=== PATIENT | female | born 1975 | race Caucasian/White ===

== ENCOUNTER 2017-08-30 12:57 | Observation (INO) | payer MEDICARE ==
[~2017-08-30] VITALS: Ht 152.4 cm; Wt 72.1 kg
[2017-08-30] VITALS (10 sets, daily range): BP systolic 107–161; BP diastolic 55–101; PULSE 92–114; RESP 15–20; TEMP 98–99.2; O2SAT 97–100
[~2017-08-30 12:57] MED LIST: IBUP800T23 PO; PERC5TAB12 PO
[2017-08-30] MEDS ORDERED: SODIUM CHLORIDE 0.9% FLUSH 10 ML FLUSH IV FLUSH PRN (14:00)
--- NOTE | 2017-08-30 14:28 | PD ---
HPI Chief Complaint: Anxiety Time Seen by Provider: 13:52 Travel History International Travel<30 days: No Contact w/Intl Traveler<30days: No Traveled to known affect area: No History of Present Illness HPI 42-year-old female presents to the ED for evaluation of intermittent episodes of tachycardia and increased agitation. Episodes occur randomly, lasting approximately 5 minutes before resolving spontaneously. She can identify no alleviating or exacerbating factors. She endorses occasional mild chest pain and shortness of breath accompanying the tachycardia. She denies diaphoresis, nausea or vomiting. She states that she feels these symptoms may be related to menopause. 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 Never smoked. Denies family history of NH. Unsure of the last time she's had any labs drawn. PFSH Past Medical History Hx Anticoagulant Therapy: No Cancer: Yes (HODGKINS DX) Cardiovascular Problems: No Chemotherapy: Yes (STARTED 2009, FINISHED 02/2010) Diabetes: No Diminished Hearing: No Glaucoma: No Hepatitis: No Hiatal Hernia: No Hypertension: No Respiratory: No Immunizations Current: Yes Radiation Therapy: Yes (FINISHED, APRIL 2012) Thyroid Disease: No Tetanus Vaccination: > 5 Years Influenza Vaccination: Yes PNEUMOCCOCAL Vaccine (Year): 2 ?: Not Menopausal: Yes : 4 Para: 3 Miscarriage: 1 Tubal Ligation: Yes Past Surgical History Abdominal Surgery: No Cardiac Surgery: No Section: Yes (X 3) Ear Surgery: No Endocrine Surgery: No Eye Surgery: No Genitourinary Surgery: No Gynecologic Surgery: Yes (THREE , TUBAL LIGATION) Hysterectomy: Yes Oral Surgery: Yes (TEETH REMOVAL) Pacemaker: No Other Surgery: Yes (neck hodgkins) Social History Alcohol Use: No Tobacco Use: No Substance Use: No Allergies-Medications (Allergen,Severity, Reaction): Coded Allergies: acetaminophen (Unverified Allergy, Severe, VOMITING, 08/30/17) hydrocodone (Unverified Allergy, Severe, VOMITING, 08/30/17) Reported Meds & Prescriptions Reported Meds & Active Scripts Active Review of Systems Except as stated in HPI: all other systems reviewed are Neg Physical Exam Narrative GENERAL: Well-nourished, well-developed female in no acute distress. SKIN: Focused skin assessment warm/dry. HEAD: Normocephalic. EYES: No scleral icterus. No injection or drainage. NECK: Supple, trachea midline. No JVD or lymphadenopathy. CARDIOVASCULAR: Regular rate and rhythm without murmurs, gallops, or rubs. RESPIRATORY: Breath sounds clear and equal bilaterally. No accessory muscle use. GASTROINTESTINAL: Abdomen soft, non-tender, nondistended. Active bowel sounds. RECTAL EXAM: No masses or tenderness, stool is brown. Guaiac negative MUSCULOSKELETAL: No cyanosis, or edema. BACK: Nontender without obvious deformity. No CVA tenderness. Data Data Last Documented VS Vital Signs Date Time Temp Pulse Resp B/P (MAP) Pulse Ox O2 Delivery O2 Flow Rate FiO2 08/30/17 13:02 98.0 111 16 149/79 (102) 100 Orders Orders Electrocardiogram (08/30/17 ) Basic Metabolic Panel (Bmp) (08/30/17 13:59) Complete Blood Count With Diff (08/30/17 13:59) Iv Access Insert/Monitor (08/30/17 13:59) Sodium Chloride 0.9% Flush (Ns Flush) (08/30/17 14:00) Thyroid Stimulating Hormone (08/30/17 13:59) Iron/Tibc Profile (08/30/17 14:56) Type And Screen (08/30/17 14:56) Troponin I (08/30/17 15:18) Red Blood Cells (Rbc) (08/30/17 15:26) Sodium Chlor 0.9% 1000 Ml Inj (Ns 1000 M (08/30/17 15:30) Blood Product Administration (08/30/17 15:41) Admit Order (Ed Use Only) (08/30/17 15:44) Labs Laboratory Tests Test 08/30/17 14:15 08/30/17 14:45 White Blood Count 9.0 TH/MM3 Red Blood Count 3.63 MIL/MM3 Hemoglobin 6.1 GM/DL Hematocrit 20.3 % Mean Corpuscular Volume 56.1 FL Mean Corpuscular Hemoglobin 16.7 PG Mean Corpuscular Hemoglobin Concent 29.8 % Red Cell Distribution Width 19.5 % Platelet Count 314 TH/MM3 Mean Platelet Volume 7.4 FL Neutrophils (%) (Auto) 79.8 % Lymphocytes (%) (Auto) 10.2 % Monocytes (%) (Auto) 7.5 % Eosinophils (%) (Auto) 1.6 % Basophils (%) (Auto) 0.9 % Neutrophils # (Auto) 7.2 TH/MM3 Lymphocytes # (Auto) 0.9 TH/MM3 Monocytes # (Auto) 0.7 TH/MM3 Eosinophils # (Auto) 0.1 TH/MM3 Basophils # (Auto) 0.1 TH/MM3 CBC Comment AUTO DIFF Differential Comment AUTO DIFF CONFIRMED Platelet Estimate NORMAL Platelet Morphology Comment NORMAL Target Cells 1+ Blood Urea Nitrogen 9 MG/DL Creatinine 0.68 MG/DL Random Glucose 156 MG/DL Calcium Level 8.8 MG/DL Sodium Level 134 MEQ/L Potassium Level 3.4 MEQ/L Chloride Level 101 MEQ/L Carbon Dioxide Level 25.0 MEQ/L Anion Gap 8 MEQ/L Estimat Glomerular Filtration Rate 96 ML/MIN Thyroid Stimulating Hormone 3rd Gen 1.760 uIU/ML Troponin I LESS THAN 0.02 NG/ML MDM Medical Decision Making Medical Screen Exam Complete: Yes Emergency Medical Condition: Yes Differential Diagnosis Dysrhythmia versus anxiety versus anemia versus metabolic derangement versus menopause versus hyperthyroidism versus other Narrative Course 42-year-old female presents to the ED for evaluation of intermittent episodes of tachycardia and increased agitation. Episodes occur randomly, lasting approximately 5 minutes before resolving spontaneously. She endorses occasional mild chest pain and shortness of breath accompanying the tachycardia. Never smoked. Denies family history of NH. Patient is tachycardic on presentation. Physical exam is unremarkable. IV was established. EKG rate 99, sinus rhythm. WV interval 149, QRS 81, QTC 404 ms. Normal axis. Q wave in 2. Reviewed by Dr. Ramos Troponin: Negative 1 CBC: Hemoglobin 6.1, hematocrit 20.3. CMP: No concerning abnormalities. TSH: 1.760 I discussed the patient's anemia with the family. Patient endorses history of iron deficiency anemia. She is not currently taking any supplementation. Denies any melena, hematochezia, chronic NSAID use. Rectal exam performed, guaiac negative. 2 units PRBCs ordered pending type and screen. Patient is agreeable to admission. I spoke with Dr. Rockwell who agrees to accept the patient to the medicine service for observation. Please see medicinefor disposition. HemaPrompt Point of Care Internal Pos. & Neg. Controls: Passed Fecal Specimen Occult Blood: Negative Yolanda Reddy Aug 30, 2017 14:28
[2017-08-30 14:36] LABS: CALCIUM 8.8 MG/DL (8.5-10.1)
[2017-08-30 14:39] LABS: CREATININE 0.68 MG/DL (0.50-1.00)
[2017-08-30 14:42] LABS: AUTOMATED NEUTROPHIL # 7.2 TH/MM3 (1.8-7.7); BASOPHIL # 0.1 TH/MM3 (0-0.2); BASOPHIL % 0.9 % (0.0-2.0); EOSINOPHIL # 0.1 TH/MM3 (0-0.4); EOSINOPHIL % 1.6 % (0.0-4.0); LYMPH % 10.2 % (9.0-44.0); LYMPHOCYTE # 0.9 TH/MM3 (1.0-4.8); MEAN CELL VOLUME 56.1 FL (80.0-100.0); MEAN CORPUSCULAR HEMOGLOBIN 16.7 PG (27.0-34.0); MEAN PLATELET VOLUME 7.4 FL (7.0-11.0); MONO % 7.5 % (0.0-8.0); MONOCYTE # 0.7 TH/MM3 (0-0.9); NEUT % 79.8 % (16.0-70.0); PLATELET COUNT 314 TH/MM3 (150-450); RED BLOOD COUNT 3.63 MIL/MM3 (4.00-5.30); RED CELL DISTRIBUTION WIDTH 19.5 % (11.6-17.2)
[2017-08-30 14:44] LABS: MEAN CORPUSCULAR HGB CONC 29.8 % (32.0-36.0)
[2017-08-30 14:47] LABS: HEMOGLOBIN 6.1 GM/DL (11.6-15.3)
[2017-08-30 14:48] LABS: HEMATOCRIT 20.3 % (35.0-46.0)
[2017-08-30 15:13] LABS: TARGET CELLS 1+ (NORMAL)
[2017-08-30] MEDS ORDERED: SODIUM CHLOR 0.9% 1000 ML INJ 1,000 ML IV ONE (15:30)
[2017-08-30 18:11] LABS: IRON (FE) 13 MCG/DL (50-170); TOTAL IRON BINDING CAPACITY 643 MCG/DL (250-450)
[2017-08-30] MEDS ORDERED: SODIUM CHLOR 0.9% 250 ML INJ 250 ML IV ONE (18:15)
[2017-08-30] MEDS ORDERED: ALPRAZolam 0.25 MG TAB PO ONE (21:00)
[2017-08-31] VITALS (7 sets, daily range): BP systolic 116–130; BP diastolic 78–91; PULSE 82–99; RESP 16–20; TEMP 96.4–98.5; O2SAT 96–98
[2017-08-31 08:59] LABS: AUTOMATED NEUTROPHIL # 6.6 TH/MM3 (1.8-7.7); BASOPHIL # 0.2 TH/MM3 (0-0.2); BASOPHIL % 1.8 % (0.0-2.0); EOSINOPHIL # 0.2 TH/MM3 (0-0.4); EOSINOPHIL % 2.2 % (0.0-4.0); HEMATOCRIT 28.2 % (35.0-46.0); HEMOGLOBIN 8.9 GM/DL (11.6-15.3); LYMPH % 12.8 % (9.0-44.0); LYMPHOCYTE # 1.1 TH/MM3 (1.0-4.8); MEAN CELL VOLUME 66.7 FL (80.0-100.0); MEAN CORPUSCULAR HEMOGLOBIN 21.1 PG (27.0-34.0); MEAN CORPUSCULAR HGB CONC 31.6 % (32.0-36.0); MEAN PLATELET VOLUME 7.5 FL (7.0-11.0); MONO % 8.3 % (0.0-8.0); MONOCYTE # 0.7 TH/MM3 (0-0.9); NEUT % 74.9 % (16.0-70.0); PLATELET COUNT 258 TH/MM3 (150-450); RED BLOOD COUNT 4.23 MIL/MM3 (4.00-5.30); RED CELL DISTRIBUTION WIDTH 28.3 % (11.6-17.2); WHITE BLOOD COUNT 8.8 TH/MM3 (4.0-11.0)
[2017-08-31 09:22] LABS: KERATOCYTES 1+ (NORMAL); OVALOCYTES 1+ (NORMAL); TARGET CELLS 1+ (NORMAL)
--- NOTE | 2017-08-31 09:50 | HHI.HP ---
[facility] Service [facility] Primary Care Physician No Primary Care Physician Admission Diagnosis symptomatic anemia Diagnoses: (1) Symptomatic anemia Chief Complaint: Tachycardia, hot flashes Travel History International Travel<30 Days: No Contact w/Intl Traveler <30 Da: No Traveled to Known Affected Are: No History of Present Illness The patient is a 42-year-old female who presented to the emergency department for complaint of tachycardia, agitation, hot flashes. She states that she has had multiple episodes over the past few weeks. She denies dyspnea or diaphoresis. She denies nausea or vomiting. She believes that she is going into early menopause. She reports infrequent light periods. She denies any blood in her stool or urine. No chest pain. Review of Systems Constitutional: DENIES: Fever, Chills, Night Sweats Endocrine: COMPLAINS OF: Abnorml menstrual pattern Eyes: DENIES: Blurred vision, Vision loss Ears, nose, mouth, throat: DENIES: Hearing loss Respiratory: DENIES: Cough, Wheezing, Sputum production, Shortness of breath Cardiovascular: DENIES: Chest pain, Palpitations, Dyspnea on Exertion, Lower Extremity Edema Gastrointestinal: DENIES: Abdominal pain, Constipation, Diarrhea, Nausea, Vomiting Genitourinary: DENIES: Urinary frequency, Urinary incontinence, Urgency, Hematuria, Dysuria, Nocturia Musculoskeletal: DENIES: Joint pain, Muscle aches Integumentary: DENIES: Pruritus, Rash Hematologic/lymphatic: DENIES: Bruising Neurologic: DENIES: Headache Past Family Social History Past Medical History History of Hodgkin's lymphoma History of ectopic Past Surgical History section Left oophorectomy secondary to ectopic Teeth removal Biopsy of the neck for Hodgkin's disease. Reported Medications None Allergies: Coded Allergies: acetaminophen (Unverified Allergy, Severe, VOMITING, 08/30/17) hydrocodone (Unverified Allergy, Severe, VOMITING, 08/30/17) Family History Breast cancer Lung cancer Skin cancer Diabetes Social History Denies tobacco or illicit drug use. Occasional alcohol use. Physical Exam Vital Signs Vital Signs Date Time Temp Pulse Resp B/P (MAP) Pulse Ox O2 Delivery O2 Flow Rate FiO2 08/31/17 08:38 96.4 82 18 126/82 (97) 98 08/31/17 04:00 97.9 82 20 130/90 (103) 97 08/31/17 03:30 97.9 82 16 130/90 97 08/31/17 03:08 98.2 91 16 116/89 98 08/31/17 02:30 98.0 88 16 120/86 96 08/31/17 00:00 98.5 99 20 117/78 (91) 97 08/30/17 23:18 98.5 92 16 115/76 100 08/30/17 23:03 98.5 99 16 117/78 97 08/30/17 22:48 98.4 106 18 124/75 98 08/30/17 22:30 98.2 105 18 121/80 97 08/30/17 20:00 98.9 105 20 122/66 (84) 98 08/30/17 18:30 98.8 114 15 128/77 (94) 100 08/30/17 18:20 161/101 (121) 08/30/17 18:19 99.2 103 20 133/77 (95) 99 08/30/17 17:44 103 18 107/55 (72) 99 Room Air 08/30/17 13:02 98.0 111 16 149/79 (102) 100 Physical Exam GENERAL: Well-nourished, well-developed female in no acute distress. HEENT: Normocephalic, atraumatic. Pupils equal, round and reactive. Extraocular movements intact. No scleral icterus. No injection or drainage. Oropharynx is clear. Mucous membranes are moist. CARDIOVASCULAR: Regular rate and rhythm without murmurs, gallops, or rubs. RESPIRATORY: Clear to auscultation. No wheezes, rales, or rhonchi. Breathing is non-labored. GASTROINTESTINAL: Abdomen soft, non-tender, nondistended. EXTREMITIES: No lower extremity edema. No calf tenderness. PSYCH: Alert and oriented x 3. Laboratory Laboratory Tests Test 08/30/17 14:15 08/30/17 14:45 08/30/17 22:45 08/31/17 08:48 White Blood Count 9.0 8.8 Red Blood Count 3.63 4.23 Hemoglobin 6.1 8.9 Hematocrit 20.3 28.2 Mean Corpuscular Volume 56.1 66.7 Mean Corpuscular Hemoglobin 16.7 21.1 Mean Corpuscular Hemoglobin Concent 29.8 31.6 Red Cell Distribution Width 19.5 28.3 Platelet Count 314 258 Mean Platelet Volume 7.4 7.5 Neutrophils (%) (Auto) 79.8 74.9 Lymphocytes (%) (Auto) 10.2 12.8 Monocytes (%) (Auto) 7.5 8.3 Eosinophils (%) (Auto) 1.6 2.2 Basophils (%) (Auto) 0.9 1.8 Neutrophils # (Auto) 7.2 6.6 Lymphocytes # (Auto) 0.9 1.1 Monocytes # (Auto) 0.7 0.7 Eosinophils # (Auto) 0.1 0.2 Basophils # (Auto) 0.1 0.2 CBC Comment AUTO DIFF AUTO DIFF Differential Comment AUTO DIFF CONFIRMED AUTO DIFF CONFIRMED Platelet Estimate NORMAL Platelet Morphology Comment NORMAL Target Cells 1+ 1+ Blood Urea Nitrogen 9 Creatinine 0.68 Random Glucose 156 Calcium Level 8.8 Sodium Level 134 Potassium Level 3.4 Chloride Level 101 Carbon Dioxide Level 25.0 Anion Gap 8 Estimat Glomerular Filtration Rate 96 Thyroid Stimulating Hormone 3rd Gen 1.760 Iron Level 13 Total Iron Binding Capacity 643 Percent Iron Saturation 2.0 Troponin I LESS THAN 0.02 0.02 Ovalocytes 1+ Keratocytes 1+ Result Diagram: 08/31/17 0848 08/30/17 1415 Caprini VTE Risk Assessment Caprini VTE Risk Assessment: No/Low Risk (score <= 1) Caprini Risk Assessment Model Point Value = 1 Point Value = 2 Point Value = 3 Point Value = 5 Age 41-60 Minor surgery BMI > 25 kg/m2 Swollen legs Varicose veins or History of unexplained or recurrent spontaneous Oral contraceptives or hormone replacement Sepsis (< 1 month) Serious lung disease, including pneumonia (< 1 month) Abnormal pulmonary function Acute myocardial infarction Congestive heart failure (< 1 month) History of inflammatory bowel disease Medical patient at bed rest Age 61-74 Arthroscopic surgery Major open surgery (> 45 min) Laparoscopic surgery (> 45 min) Malignancy Confined to bed (> 72 hours) Immobilizing plaster cast Central venous access Age >= 75 History of VTE Family history of VTE Factor V Leiden Prothrombin [id number] Lupus anticoagulant Anticardiolipin antibodies Elevated serum homocysteine Heparin-induced thrombocytopenia Other congenital or acquired thrombophilia Stroke (< 1 month) Elective arthroplasty Hip, pelvis, or leg fracture Acute spinal cord injury (< 1 month) Prophylaxis Regimen Total Risk Factor Score Risk Level Prophylaxis Regimen 0-1 Low Early ambulation 2 Moderate Order ONE of the following: *Sequential Compression Device (SCD) *Heparin 5000 units SQ BID 3-4 Higher Order ONE of the following medications: *Heparin 5000 units SQ TID *Enoxaparin/Lovenox 40 mg SQ daily (WT < 150 kg, CrCl > 30 mL/min) *Enoxaparin/Lovenox 30 mg SQ daily (WT < 150 kg, CrCl > 10-29 mL/min) *Enoxaparin/Lovenox 30 mg SQ BID (WT < 150 kg, CrCl > 30 mL/min) AND/OR *Sequential Compression Device (SCD) 5 or more Highest Order ONE of the following medications: *Heparin 5000 units SQ TID (Preferred with Epidurals) *Enoxaparin/Lovenox 40 mg SQ daily (WT < 150 kg, CrCl > 30 mL/min) *Enoxaparin/Lovenox 30 mg SQ daily (WT < 150 kg, CrCl > 10-29 mL/min) *Enoxaparin/Lovenox 30 mg SQ BID (WT < 150 kg, CrCl > 30 mL/min) AND *Sequential Compression Device (SCD) Assessment and Plan Assessment and Plan 1. Symptomatic anemia: No reported bleeding. Labs consistent with iron deficiency anemia. Patient states that she has had anemia in the past, but does not take iron supplementation due to constipation. Rectal exam performed in the ER, stool Hemoccult is negative. Received transfusion of 2 units PRBCs overnight. Hemoglobin improved following transfusion. Recheck H&H this afternoon. If hemoglobin remains stable, will consider discharge home with instructions to follow-up as outpatient with PCP and hematology. 2. DVT prophylaxis: SCDsJUAN MANUEL. Avoid chemical prophylaxis secondary to anemia. Kevin Marte MD Aug 31, 2017 09:50
[2017-08-31 13:39] LABS: HEMATOCRIT 31.2 % (35.0-46.0)
--- NOTE | 2017-08-31 14:38 | HHI.DCPOC ---
Discharge Care Plan Diagnosis: (1) Symptomatic anemia Goals to Promote Your Health * To prevent worsening of your condition and complications * To maintain your health at the optimal level Directions to Meet Your Goals Take your medications as prescribed Follow your dietary instruction Follow activity as directed Keep your appointments as scheduled Take your immunizations and boosters as scheduled If your symptoms worsen call your PCP, if no PCP go to Urgent Care Center or Emergency Room Smoking is Dangerous to Your Health. Avoid second hand smoke Call the 24-hour hour crisis hotline for domestic abuse at Kevin Marte MD Aug 31, 2017 14:38
[2017-08-31] MEDS ORDERED: FERR325T18 PO (16:00)
--- NOTE | 2017-08-31 18:23 | EKG ---
Date Performed: 08/30/2017 Time Performed: 14:12:10 PTAGE: 42 years EKG: Sinus rhythm LEFT VENTRICULAR HYPERTROPHY AND ST-T CHANGE POSSIBLE INFERIOR MYOCARDIAL INFARCTION ABNORMAL ECG NO PREVIOUS TRACING DOCTOR: Daniel Machado Interpretating Date/Time 08/31/2017 18:21:17
== END 2017-08-31 17:27 | disposition home or self-care (01) ==
LOC: PHED 12:57 → PHEDA 15:45 → PH3B 18:33
PROVIDERS: ADMIT Hospitalist; ATTEND Hospitalist
DX: D64.9 Anemia, unspecified (principal); R00.0 Tachycardia, unspecified; R45.1 Restlessness and agitation; R07.9 Chest pain, unspecified; R06.02 Shortness of breath; I51.7 Cardiomegaly; R94.31 Abnormal electrocardiogram [ECG] [EKG]; Z85.71 Personal history of Hodgkin lymphoma
CPT/HCPCS: 36430; 80048; 82728; 83540; 83550; 84443; 84484; 84702; 85014; 85018; 85025; 86850; 86900; 86901; 86920; 93005; 96360; 96361; 99285; G0378; J7030; J7050; P9016